=== PATIENT | female | born 1965 | race African-American/Black ===

== ENCOUNTER 2023-10-20 08:58 | Day surgery (SDC) | payer BC ==
[2023-09-13 14:58] VITALS: BMI 48.2
[2023-10-20 11:03] VITALS: TEMP 97.7
[2023-10-20 11:22] VITALS: BP 121/67; PULSE 75; RESP 18
== END 2023-10-20 12:00 | disposition home or self-care (01) ==
LOC: FASU-ENDO 08:58
PROVIDERS: ATTEND Internal Medicine Gastroenterology
PROC: 0DB78ZX Excision of Stomach, Pylorus, Via Natural or Artificial Opening Endoscopic, Diagnostic (ICD-10-PCS; 2023-10-20)
PROC: 0DB68ZX Excision of Stomach, Via Natural or Artificial Opening Endoscopic, Diagnostic (ICD-10-PCS; 2023-10-20)
PROC: 0DB48ZX Excision of Esophagogastric Junction, Via Natural or Artificial Opening Endoscopic, Diagnostic (ICD-10-PCS; 2023-10-20)
PROC: 0DB98ZX Excision of Duodenum, Via Natural or Artificial Opening Endoscopic, Diagnostic (ICD-10-PCS; principal; 2023-10-20 10:37)
DX: K29.50 Unspecified chronic gastritis without bleeding (principal); B96.81 Helicobacter pylori [H. pylori] as the cause of diseases classified elsewhere; K25.9 Gastric ulcer, unspecified as acute or chronic, without hemorrhage or perforation
CPT/HCPCS: 88305-TC; 88341-TC; 88342-TC

== ENCOUNTER 2023-12-22 10:37 | Day surgery (SDC) | payer BC ==
[2023-12-14 13:45] VITALS: BMI 48.2
[2023-12-22 12:23] VITALS: TEMP 97.9
[2023-12-22 12:24] VITALS: BP 114/82; PULSE 87; RESP 19
== END 2023-12-22 12:25 | disposition home or self-care (01) ==
LOC: FASU-ENDO 10:37
PROVIDERS: ATTEND Internal Medicine Gastroenterology
PROC: 0DB68ZX Excision of Stomach, Via Natural or Artificial Opening Endoscopic, Diagnostic (ICD-10-PCS; principal; 2023-12-22 11:52)
DX: Z87.11 Personal history of peptic ulcer disease (principal); K29.50 Unspecified chronic gastritis without bleeding
CPT/HCPCS: 88305-TC; 88342-TC

== ENCOUNTER 2024-03-08 10:08 | Day surgery (SDC) | payer BC ==
[2024-03-05 14:45] VITALS: BMI 48.2
[2024-03-08 10:38] VITALS: RESP 18
[2024-03-08] MEDS ORDERED: PROPOFOL 80 ML ONE (10:49)
[2024-03-08 11:25] VITALS: TEMP 97.2
[2024-03-08 12:37] VITALS: BP 128/70; PULSE 88
== END 2024-03-08 12:10 | disposition home or self-care (01) ==
LOC: FASU-ENDO 10:08
PROVIDERS: ATTEND Internal Medicine Gastroenterology
PROC: 0DDN8ZX Extraction of Sigmoid Colon, Via Natural or Artificial Opening Endoscopic, Diagnostic (ICD-10-PCS; principal; 2024-03-08 11:05)
DX: Z12.11 Encounter for screening for malignant neoplasm of colon (principal); K57.30 Diverticulosis of large intestine without perforation or abscess without bleeding; K64.1 Second degree hemorrhoids; K52.9 Noninfective gastroenteritis and colitis, unspecified
CPT/HCPCS: 81025; 88305-TC